=== PATIENT | female | born 1970 | race American Indian/Alaskan Native ===

== ENCOUNTER 2019-06-22 14:44 | Emergency (ER) | payer SELFPAY ==
[2019-06-22] MEDS ORDERED: cloNIDine 0.2 MG TAB PO ONE (15:06)
--- NOTE | 2019-06-22 15:06 | Event Note ---
ED Screening Note Date of service: 06/22/19 Time: 15:02 ED Screening Note: 48 y o female with PMH of HTN presents with headache and elevated BP hyzarr,accurpril/hctz - out of meds x 2months PCP- Coretta Dunne This initial assessment/diagnostic orders/clinical plan/treatment(s) is/are subject to change based on patients health status, clinical progression and re- assessment by fellow clinical providers in the ED. Further treatment and workup at subsequent clinical providers discretion. Patient/guardian urged not to elope from the ED as their condition may be serious if not clinically assessed and managed. Initial orders include: ekg, labs clonidine in traige
[2019-06-22 16:04] LABS: Basophils % (Auto) 0.5 % (0.0-1.8); Eosinophils # (Auto) 0.2 K/mm3 (0.0-0.4); Eosinophils % (Auto) 2.6 % (0.0-4.3); Hematocrit 43.9 % (30.3-42.9); Hemoglobin 14.4 gm/dl (10.1-14.3); Lymphocytes # (Auto) 3.1 K/mm3 (1.2-5.4); Lymphocytes % (Auto) 41.1 % (13.4-35.0); Mean Corpuscular HGB Conc 33 % (30-34); Mean Corpuscular Volume 82 fl (79-97); Monocytes # (Auto) 0.5 K/mm3 (0.0-0.8); Monocytes % (Auto) 6.8 % (0.0-7.3); Platelet Count 345 K/mm3 (140-440); Red Blood Count 5.37 M/mm3 (3.65-5.03); Red Cell Distribution Width 15.2 % (13.2-15.2)
[2019-06-22 16:07] VITALS: BP 155/91
[2019-06-22 16:18] LABS: Albumin 3.9 g/dL (3.9-5); Calcium 9.4 mg/dL (8.4-10.2)
--- NOTE | 2019-06-22 16:39 | Emergency Department Report ---
ED General Adult HPI - General Chief complaint: High BP Stated complaint: HBP/247/180 Time Seen by Provider: 06/22/19 16:05 Source: patient Mode of arrival: Ambulatory Limitations: No Limitations - History of Present Illness Initial comments: Patient is a 48-year-old female Emergency room for management of her blood pressure. Patient's blood pressure is extremely elevated. Patient states she was at a blood drive at work and her blood pressure was found to be 247 over 1A and she was sent here for management of her blood pressure. Patient denies s hortness of breath. Patient denies chest pain. Patient denies headache. Patient denies any physical complaints. Patient states she feels fine. Patient states she's had high blood pressure for approximately 15 years and she hasn't taken any medications for 10 years. -: Sudden Consistency: other Improves with: none Worsens with: none Associated Symptoms: denies other symptoms Treatments Prior to Arrival: none - Related Data Previous Rx's Medication Instructions Recorded Last Taken Type Amlodipine Besylate [Norvasc] 5 mg PO DAILY 15 Days #15 tablet 06/22/19 Unknown Rx Allergies Allergy/AdvReac Type Severity Reaction Status Date / Time No Known Allergies Allergy Unverified 06/22/19 14:49 ED Review of Systems ROS: Stated complaint: HBP/247/180 Other details as noted in HPI Comment: All other systems reviewed and negative Constitutional: denies: chills, fever Eyes: denies: eye pain, eye discharge, vision change ENT: denies: ear pain, throat pain Respiratory: denies: cough, shortness of breath, wheezing Cardiovascular: denies: chest pain, palpitations Endocrine: no symptoms reported Gastrointestinal: denies: abdominal pain, nausea, diarrhea Genitourinary: denies: urgency, dysuria, discharge Musculoskeletal: denies: back pain, joint swelling, arthralgia Skin: denies: rash, lesions Neurological: denies: headache, weakness, paresthesias Psychiatric: denies: anxiety, depression Hematological/Lymphatic: denies: easy bleeding, easy bruising ED Past Medical Hx - Past Medical History Previous Medical History?: Yes Hx Hypertension: Yes - Surgical History Past Surgical History?: Yes Additional Surgical History: hysterectomy - Family History Family history: no significant - Social History Smoking Status: Never Smoker Substance Use Type: None - Medications Home Medications: Home Medications Medication Instructions Recorded Confirmed Last Taken Type Amlodipine Besylate [Norvasc] 5 mg PO DAILY 15 Days #15 tablet 06/22/19 Unknown Rx ED Physical Exam - General Limitations: No Limitations General appearance: alert, in no apparent distress - Head Head exam: Present: atraumatic, normocephalic - Eye Eye exam: Present: normal appearance, PERRL Pupils: Present: normal accommodation - ENT ENT exam: Present: mucous membranes moist - Neck Neck exam: Present: normal inspection - Respiratory Respiratory exam: Present: normal lung sounds bilaterally. Absent: respiratory distress, wheezes, rales - Cardiovascular Cardiovascular Exam: Present: regular rate, normal rhythm. Absent: systolic murmur, diastolic murmur, rubs, gallop - GI/Abdominal GI/Abdominal exam: Present: soft, normal bowel sounds - Rectal Rectal exam: Present: deferred - Extremities Exam Extremities exam: Present: normal inspection - Back Exam Back exam: Present: normal inspection - Neurological Exam Neurological exam: Present: alert, oriented X3 - Psychiatric Psychiatric exam: Present: normal affect, normal mood - Skin Skin exam: Present: warm, dry, intact, normal color. Absent: rash ED Course Vital Signs 06/22/19 06/22/19 06/22/19 15:01 15:06 16:07 Temperature 98.2 F Pulse Rate 83 76 Respiratory 16 16 Rate Blood Pressure 225/136 Blood Pressure 224/143 155/91 [right forearm] O2 Sat by Pulse 96 96 Oximetry - Reevaluation(s) Reevaluation #1: Patient placed on campus monitor and noted to have a 144/92 blood pressure. Patient is status post clonidine. Patient states she's not having any symptoms. Patient denies pain. Patient denies dizziness. Patient denies headache. 06/22/19 16:38 Reevaluation #2: I discussed all results with patient. Discussed plan of care with patient. Patient stable for discharge. Patient discharged home. Patient agrees with plan of care. Patient will be given a prescription for Norvasc. Patient given medication instructions. Patient given discharge instructions. Patient voiced understanding of all instructions. 06/22/19 16:44 ED Medical Decision Making - Lab Data Result diagrams: 06/22/19 15:22 06/22/19 15:22 - Medical Decision Making Patient is a 48-year-old female that presents emergency room with complaints of high blood pressure. Patient was not compliant with her medications for many years. Patient given clonidine in the ER and her pressure spinal well. Patient's blood pressure prior to discharge 144/92. Patient will be given a p ressure or Norvasc. Patient's labs unremarkable except for renal insufficiency. Patient will need follow-up with her primary care to monitor her kidney function. Patient given discharge instructions. Patient stable for discharge. - Differential Diagnosis hypertension. Noncompliance. Malignant hypertension. Critical Care Time: Yes Critical care time in (mins) excluding proc time.: 35 Critical care attestation.: If time is entered above; I have spent that time in minutes in the direct care of this critically ill patient, excluding procedure time. Critical Care Time: 35 minutes ED Disposition Clinical Impression: Malignant hypertension, Renal insufficiency, Noncompliance Hypertension Qualifiers: Hypertension type: unspecified Qualified Code(s): I10 - Essential (primary) hypertension Disposition: TO HOME OR SELFCARE Is pt being admited?: No Does the pt Need Aspirin: No Condition: Stable Instructions: Heart Healthy Diet (ED), How to Take a Blood Pressure (ED), DASH Eating Plan (ED), Low Sodium Diet (ED), Hypertensive Crisis (ED), Hypertension (ED) Additional Instructions: Patient to follow-up with primary care in 2-3 days. Patient to return to ER if condition worsens. Patient take meds as directed. Patient increase water. Patient to take Tylenol when necessary for pain. Patient to rest. Patient to monitor blood pressure at home and take log to her primary care follow-up. Patient to eat a heart healthy diet. Patient to eat a low-salt diet. Prescriptions: Amlodipine Besylate [Norvasc] 5 mg PO DAILY 15 Days #15 tablet Time of Disposition: 16:43
== END 2019-06-22 17:00 | disposition home or self-care (01) ==
LOC: ED 14:44
DX: I10 Essential (primary) hypertension (principal); N28.9 Disorder of kidney and ureter, unspecified; Z79.899 Other long term (current) drug therapy; Z90.710 Acquired absence of both cervix and uterus
CPT/HCPCS: 36415; 80053; 85025; 99283

== ENCOUNTER 2019-09-04 15:32 | Emergency (ER) | payer SELFPAY ==
--- NOTE | 2019-09-04 17:05 | Event Note ---
ED Screening Note Date of service: 09/04/19 ED Screening Note: This initial assessment/diagnostic orders/clinical plan/treatment(s) is/are subject to change based on patients health status, clinical progression and re- assessment by fellow clinical providers in the ED. Further treatment and workup at subsequent clinical providers discretion. Patient/guardian urged not to elope from the ED as their condition may be serious if not clinically assessed and managed. Initial orders include: accelerated HTN. Been at PCP and send. ROS asymptommatic Exam Lung CTA CV rrr s M ms NVI, no significant edema w/u for Accel HTN and management
--- NOTE | 2019-09-04 17:34 | XRay Report ---
CHEST 2 VIEWS INDICATION / CLINICAL INFORMATION: Hypertension. Slight headache. COMPARISON: None available. FINDINGS: SUPPORT DEVICES: None. HEART / MEDIASTINUM: Heart is upper normal size. LUNGS / PLEURA: No significant pulmonary or pleural abnormality. No pneumothorax. ADDITIONAL FINDINGS: No significant additional findings. IMPRESSION: 1. No acute findings. Signer Name: Lamonte Arambula MD Signed: 09/04/2019 5:30 PM Workstation Name: [id number]
[2019-09-04 17:56] LABS: Basophils % (Auto) 0.3 % (0.0-1.8); Eosinophils # (Auto) 0.2 K/mm3 (0.0-0.4); Eosinophils % (Auto) 2.4 % (0.0-4.3); Hematocrit 43.3 % (30.3-42.9); Hemoglobin 14.5 gm/dl (10.1-14.3); Lymphocytes # (Auto) 2.3 K/mm3 (1.2-5.4); Lymphocytes % (Auto) 26.4 % (13.4-35.0); Mean Corpuscular HGB Conc 34 % (30-34); Mean Corpuscular Volume 82 fl (79-97); Monocytes # (Auto) 0.6 K/mm3 (0.0-0.8); Monocytes % (Auto) 7.2 % (0.0-7.3); Platelet Count 380 K/mm3 (140-440); Red Cell Distribution Width 15.4 % (13.2-15.2)
[2019-09-04 18:05] LABS: INR 0.96 (0.87-1.13)
[2019-09-04 18:06] LABS: Partial Thromboplastin Time 30.7 Sec. (24.2-36.6)
[2019-09-04 18:21] LABS: Alanine Aminotransferase 15 units/L (7-56); Albumin 4.3 g/dL (3.9-5); BUN/Creatinine Ratio 19; Blood Urea Nitrogen 21 mg/dL (7-17); Calcium 9.6 mg/dL (8.4-10.2); Hemolysis Index 11
[2019-09-04 18:25] LABS: Bilirubin,Direct < 0.2 mg/dL (0-0.2)
[2019-09-04 20:07] VITALS: BP 175/108
== END 2019-09-04 21:25 | disposition left against medical advice (07) ==
LOC: ED 15:32
DX: I10 Essential (primary) hypertension (principal); Z53.21 Procedure and treatment not carried out due to patient leaving prior to being seen by health care provider
CPT/HCPCS: 36415; 71046; 80048; 80076; 83880; 84484; 85025; 85610; 85730